=== PATIENT | female | born 1965 | race Asian ===

== ENCOUNTER 2023-01-10 13:53 | Emergency (ER) | payer OTHER ==
[2023-01-10 14:07] VITALS: BP 138/72; PULSE 73; RESP 18; TEMP 97.9; BMI 35.2
[2023-01-10] MEDS ORDERED: KETOROLAC TROMETHAMINE 30 MG/1 ML VIAL IM ONE (14:33)
[2023-01-10] MEDS ORDERED: LIDOCAINE 5% TOPICAL PATCH TP ONE (14:33)
[2023-01-10] MEDS ORDERED: CYCLOBENZAPRINE HCL 10 MG TABLET (FP) PO ONE (14:33)
[2023-01-10] MEDS ORDERED: LIDOCAINE 5% TOPICAL PATCH ONE (14:37)
[2023-01-10] MEDS ORDERED: KETOROLAC TROMETHAMINE 30 MG/1 ML VIAL ONE (14:37)
[2023-01-10] MEDS ORDERED: CYCLOBENZAPRINE HCL 5 MG TABLET ONE (14:37)
[2023-01-10] MEDS ORDERED: LIDOCAINE PATCH REMOVAL MC SCH (22:00)
== END 2023-01-10 15:40 | disposition home or self-care (01) ==
LOC: FER 13:53
PROC: 3E023GC Introduction of Other Therapeutic Substance into Muscle, Percutaneous Approach (ICD-10-PCS; principal; 2023-01-10)
DX: M25.562 Pain in left knee (principal)
CPT/HCPCS: 73560-TC-RT-FY; 99284-25